=== PATIENT | male | born 1935 | race Caucasian/White ===

== ENCOUNTER 2023-06-23 12:00 | Inpatient (IN) | payer MEDICARE, BC ==
[~2023-06-23] VITALS: Ht 165.1 cm; Wt 74.8 kg
[2023-06-23 12:47] LABS: BASOPHILS # (AUTO) 0.1 K/UL (0.0-0.2); BASOPHILS % (AUTO) 1.3 % (0.0-2.0); EOSINOPHILS # (AUTO) 0.1 K/uL (0.0-0.7); EOSINOPHILS % (AUTO) 0.8 % (0.0-7.0); HEMATOCRIT 42.4 % (36.7-47.1); HEMOGLOBIN 14.1 g/dL (12.5-16.3); LYMPHOCYTES # (AUTO) 2.3 K/uL (0.8-4.8); LYMPHOCYTES % (AUTO) 29.7 % (20.5-51.5); MEAN CORPUSCULAR HEMOGLOBIN 29.2 uug (23.8-33.4); MEAN CORPUSCULAR HGB CONC 33 g/dL (32.5-36.3); MEAN CORPUSCULAR VOLUME 87.7 fL (73.0-96.2); MONOCYTES # (AUTO) 0.5 K/uL (0.1-1.30); MONOCYTES % (AUTO) 6.2 % (0.0-11.0); NEUTROPHILS # (AUTO) 4.8 K/uL (1.8-8.9); PLATELET COUNT (AUTO) 228 K/uL (152-348); RED BLOOD CELL COUNT(AUTO) 4.83 MIL/uL (4.06-5.63); RED CELL DISTRIBUTION WIDTH 13.9 % (12.1-16.2); WHITE BLOOD COUNT (AUTO) 7.8 K/uL (3.6-10.2)
[2023-06-23 12:53] LABS: DIFFERENTIAL COMMENT 1
[2023-06-23 12:56] LABS: CALCIUM 9.8 mg/dL (8.5-10.1); CARBON DIOXIDE 24 mmol/L (21-32); CHLORIDE 105 mmol/L (98-107); CREATININE 1.5 mg/dL (0.6-1.3); GLUCOSE 97 mg/dL (74-106); POTASSIUM 4.2 mmol/L (3.5-5.1); SODIUM SERUM 137 mmol/L (136-145); UREA NITROGEN, BLOOD 19 mg/dL (7-18)
[2023-06-23] MEDS ORDERED: ZETIA PO (12:56)
[2023-06-23] MEDS ORDERED: HYDRALAZINE PO (12:56)
[2023-06-23] MEDS ORDERED: PAXIL PO (12:56)
[2023-06-23] MEDS ORDERED: COLCHICINE PO (12:56)
[2023-06-23] MEDS ORDERED: RANOLAZINE PO (12:56)
[2023-06-23] MEDS ORDERED: FURO20TA90 PO (12:56)
[2023-06-23] MEDS ORDERED: SYNTHROID PO (12:56)
[2023-06-23] MEDS ORDERED: CRESTOR PO (12:56)
[2023-06-23] MEDS ORDERED: ASPIRIN PO (12:56)
[2023-06-23] MEDS ORDERED: PRILOSEC PO (12:56)
[2023-06-23] MEDS ORDERED: hydrALAZINE HCL 20 MG/1 ML VIAL ONE ×2 (13:25→16:17)
[2023-06-23] MEDS ORDERED: IV NORMAL SALINE 250 ML IV ONE (13:29)
[2023-06-23] MEDS ORDERED: SWABABLE VALVE TRANSFER SET EA MC ONE (13:29)
[2023-06-23] MEDS ORDERED: IOHEXOL 350 100 ML INFUS..BTL ONE (13:29)
[2023-06-23] MEDS ORDERED: hydrALAZINE HCL 20 MG/1 ML VIAL IV ONE ×2 (13:30→16:15)
[2023-06-23] MEDS ORDERED: POLYVINYL ALCOHOL OPHT DROPS 15 ML BOTTLE ONE (15:09)
[2023-06-23] MEDS ORDERED: POLYVINYL ALCOHOL OPHT DROPS 15 ML BOTTLE OP ONE (15:15)
[2023-06-23] MEDS ORDERED: ASPIRIN 81 MG TAB.CHEW PO ONE (15:30)
[2023-06-23 18:31] VITALS: BP 169/80; TEMP 97.9; O2SAT 97
[2023-06-23 20:00] VITALS: BP 159/87; TEMP 98.1; O2SAT 96
[2023-06-23] MEDS: ENOXAPARIN SODIUM 40 MG/0.4 ML DISP.SYRIN SQ SCH (20:38)
[2023-06-24] VITALS: BP 150/88; TEMP 98.5; O2SAT 96
[2023-06-24 04:00] VITALS: BP 157/70; TEMP 98.6; O2SAT 96
[2023-06-24 05:36] VITALS: BP 146/48; TEMP 97.7; O2SAT 97
[2023-06-24] MEDS: PANTOPRAZOLE SODIUM 40 MG TABLET.DR PO SCH (06:25)
[2023-06-24 07:14] LABS: BASOPHILS % (AUTO) 0.4 % (0.0-2.0); EOSINOPHILS % (AUTO) 0.6 % (0.0-7.0); HEMATOCRIT 42.4 % (36.7-47.1); HEMOGLOBIN 14.4 g/dL (12.5-16.3); LYMPHOCYTES # (AUTO) 2.1 K/uL (0.8-4.8); LYMPHOCYTES % (AUTO) 24.5 % (20.5-51.5); MEAN CORPUSCULAR HEMOGLOBIN 29.7 uug (23.8-33.4); MEAN CORPUSCULAR HGB CONC 34 g/dL (32.5-36.3); MEAN CORPUSCULAR VOLUME 87.6 fL (73.0-96.2); MONOCYTES # (AUTO) 0.6 K/uL (0.1-1.30); MONOCYTES % (AUTO) 7.7 % (0.0-11.0); NEUTROPHILS # (AUTO) 5.6 K/uL (1.8-8.9); NEUTROPHILS % (AUTO) 66.8 % (38.5-71.5); PLATELET COUNT (AUTO) 236 K/uL (152-348); RED BLOOD CELL COUNT(AUTO) 4.84 MIL/uL (4.06-5.63); RED CELL DISTRIBUTION WIDTH 14.1 % (12.1-16.2); WHITE BLOOD COUNT (AUTO) 8.4 K/uL (3.6-10.2)
[2023-06-24 07:22] LABS: DIFFERENTIAL COMMENT 1
[2023-06-24 07:35] LABS: CARBON DIOXIDE 26 mmol/L (21-32); CHLORIDE 106 mmol/L (98-107); CREATININE 1.5 mg/dL (0.6-1.3); GLUCOSE 105 mg/dL (74-106); POTASSIUM 4.1 mmol/L (3.5-5.1); SODIUM SERUM 140 mmol/L (136-145); UREA NITROGEN, BLOOD 17 mg/dL (7-18)
[2023-06-24 08:21] LABS: CALCIUM 10.5 mg/dL (8.5-10.1)
[2023-06-24] MEDS: ASPIRIN EC 81 MG TABLET.DR PO SCH (09:11)
[2023-06-24] MEDS: hydrALAZINE HCL 25 MG TABLET PO PRN ×2 (09:11→21:50)
[2023-06-24 10:40] LABS: THYROID STIMULATING HORMONE 7.17 mIU/mL (0.358-3.740)
[2023-06-24 11:34] VITALS: BP 131/77; TEMP 98.7; O2SAT 97
[2023-06-24] MEDS ORDERED: RANOLAZINE 500 MG TAB.ER.12H PO SCH (12:58)
[2023-06-24 15:40] VITALS: BP 125/68; TEMP 97.1; O2SAT 98
[2023-06-24 16:17] LABS: *BILIRUBIN,URIN NEGATIVE (NEGATIVE); *BLOOD, URINE NEGATIVE (NEGATIVE); *CLARITY,URINE CLEAR (CLEAR); *COLOR,URINE YELLOW (YELLOW); *KETONES,URINE NEGATIVE (NEGATIVE); *PROTEIN,URINE 1+ (NEGATIVE); *UROBILINOGEN,URINE 0.2 E.U./dl (NORMAL); LEUKOCYTE ESTERASE ,URINE NEGATIVE (NEGATIVE); NITRITE, URINE NEGATIVE (NEGATIVE); PH,URINE 6.5 (5.0-8.0); UGLUCOSE NEGATIVE (NEGATIVE)
[2023-06-24 16:53] LABS: *CREATININE,URINE 137.8 mg/dL (30-125); *URINE TOTAL PROTEIN RANDOM 27.6 mg/dL (<150/24HR)
[2023-06-24 20:00] VITALS: BP 169/80; TEMP 98; O2SAT 98
[2023-06-24] MEDS: ENOXAPARIN SODIUM 40 MG/0.4 ML DISP.SYRIN SQ SCH (20:56)
[2023-06-25] VITALS: BP 159/78; TEMP 98.2; O2SAT 98
[2023-06-25 04:00] VITALS: BP 175/85; TEMP 98; O2SAT 94
[2023-06-25] MEDS: hydrALAZINE HCL 25 MG TABLET PO PRN ×2 (05:14→09:33)
[2023-06-25] MEDS: PANTOPRAZOLE SODIUM 40 MG TABLET.DR PO SCH (06:38)
[2023-06-25] MEDS: LEVOTHYROXINE SODIUM 125 MCG TABLET PO SCH (06:38)
[2023-06-25 07:12] LABS: BASOPHILS % (AUTO) 0.3 % (0.0-2.0); EOSINOPHILS # (AUTO) 0.1 K/uL (0.0-0.7); EOSINOPHILS % (AUTO) 1.5 % (0.0-7.0); HEMATOCRIT 39.3 % (36.7-47.1); HEMOGLOBIN 13.3 g/dL (12.5-16.3); LYMPHOCYTES # (AUTO) 1.5 K/uL (0.8-4.8); LYMPHOCYTES % (AUTO) 23.2 % (20.5-51.5); MEAN CORPUSCULAR HEMOGLOBIN 29.7 uug (23.8-33.4); MEAN CORPUSCULAR HGB CONC 34 g/dL (32.5-36.3); MEAN CORPUSCULAR VOLUME 87.6 fL (73.0-96.2); MONOCYTES # (AUTO) 0.6 K/uL (0.1-1.30); MONOCYTES % (AUTO) 8.7 % (0.0-11.0); NEUTROPHILS # (AUTO) 4.3 K/uL (1.8-8.9); NEUTROPHILS % (AUTO) 66.3 % (38.5-71.5); PLATELET COUNT (AUTO) 214 K/uL (152-348); RED BLOOD CELL COUNT(AUTO) 4.49 MIL/uL (4.06-5.63); RED CELL DISTRIBUTION WIDTH 14.2 % (12.1-16.2); WHITE BLOOD COUNT (AUTO) 6.6 K/uL (3.6-10.2)
[2023-06-25 07:27] LABS: DIFFERENTIAL COMMENT 1
[2023-06-25 07:40] LABS: ALANINE AMINOTRANSFERASE 15 U/L (16-63); ALBUMIN 3.4 g/dL (3.4-5.0); ALKALINE PHOSPHATASE 82 U/L (50-136); CALCIUM 10.1 mg/dL (8.5-10.1); CARBON DIOXIDE 21 mmol/L (21-32); CHLORIDE 103 mmol/L (98-107); CREATINE KINASE, TOTAL 103 U/L (39-308); CREATININE 1.6 mg/dL (0.6-1.3); GLUCOSE 130 mg/dL (74-106); MAGNESIUM 2.3 mg/dL (1.8-2.4); PHOSPHOROUS 2.8 mg/dL (2.5-4.9); POTASSIUM 3.7 mmol/L (3.5-5.1); SODIUM SERUM 136 mmol/L (136-145); TOTAL PROTEIN, SERUM 6.1 g/dL (6.4-8.2); UREA NITROGEN, BLOOD 16 mg/dL (7-18)
[2023-06-25 07:41] LABS: THYROID STIMULATING HORMONE 10.734 mIU/mL (0.358-3.740)
[2023-06-25 08:00] VITALS: BP 173/79; TEMP 98.6; O2SAT 93
[2023-06-25 08:01] LABS: ASPARTATE AMINOTRANSFERASE 26 U/L (15-37)
[2023-06-25] MEDS ORDERED: RANOLAZINE 1000 MG PO SCH (09:00)
[2023-06-25] MEDS ORDERED: ZETIA 10 MG PO SCH (09:00)
[2023-06-25] MEDS ORDERED: SYNTHROID 125 MCG PO SCH (09:00)
[2023-06-25] MEDS ORDERED: AMLODIPINE 5 MG TABLET PO SCH (09:15)
[2023-06-25] MEDS: EZETIMIBE 10 MG TABLET PO SCH (09:33)
[2023-06-25] MEDS: ASPIRIN EC 81 MG TABLET.DR PO SCH (09:33)
[2023-06-25 11:10] VITALS: BP 163/87; TEMP 97.4; O2SAT 98
[2023-06-25] MEDS: CLOPIDOGREL 75 MG TABLET PO SCH (12:50)
[2023-06-25] MEDS ORDERED: AMLODIPINE 5 MG TABLET PO ONE (14:00)
[2023-06-25 15:29] VITALS: BP 146/72; TEMP 98.3; O2SAT 97
[2023-06-25] MEDS: RANOLAZINE 500 MG TAB.ER.12H PO SCH (17:51)
[2023-06-25] MEDS: ENOXAPARIN SODIUM 40 MG/0.4 ML DISP.SYRIN SQ SCH (20:51)
[2023-06-25 21:29] VITALS: BP 162/79; TEMP 97.8; O2SAT 99
[2023-06-26 04:57] VITALS: BP 181/83; TEMP 97.8; O2SAT 99
[2023-06-26] MEDS: hydrALAZINE HCL 25 MG TABLET PO PRN (05:12)
[2023-06-26] MEDS: PANTOPRAZOLE SODIUM 40 MG TABLET.DR PO SCH (06:07)
[2023-06-26] MEDS: LEVOTHYROXINE SODIUM 125 MCG TABLET PO SCH (06:07)
[2023-06-26 06:40] VITALS: BP 155/79; TEMP 97.8
[2023-06-26 07:05] LABS: BASOPHILS % (AUTO) 0.3 % (0.0-2.0); EOSINOPHILS # (AUTO) 0.1 K/uL (0.0-0.7); HEMATOCRIT 40.1 % (36.7-47.1); HEMOGLOBIN 13.7 g/dL (12.5-16.3); LYMPHOCYTES # (AUTO) 1.9 K/uL (0.8-4.8); LYMPHOCYTES % (AUTO) 20.3 % (20.5-51.5); MEAN CORPUSCULAR HEMOGLOBIN 29.8 uug (23.8-33.4); MEAN CORPUSCULAR HGB CONC 34 g/dL (32.5-36.3); MEAN CORPUSCULAR VOLUME 87.4 fL (73.0-96.2); MONOCYTES # (AUTO) 0.9 K/uL (0.1-1.30); MONOCYTES % (AUTO) 9.2 % (0.0-11.0); NEUTROPHILS # (AUTO) 6.6 K/uL (1.8-8.9); NEUTROPHILS % (AUTO) 69.2 % (38.5-71.5); PLATELET COUNT (AUTO) 224 K/uL (152-348); RED BLOOD CELL COUNT(AUTO) 4.59 MIL/uL (4.06-5.63); WHITE BLOOD COUNT (AUTO) 9.5 K/uL (3.6-10.2)
[2023-06-26 07:06] LABS: PTH, INTACT 94 pg/mL (15-65)
[2023-06-26 07:19] LABS: DIFFERENTIAL COMMENT 1
[2023-06-26 07:27] LABS: CALCIUM 10.4 mg/dL (8.5-10.1); CARBON DIOXIDE 22 mmol/L (21-32); CHLORIDE 103 mmol/L (98-107); CREATININE 1.4 mg/dL (0.6-1.3); GLUCOSE 102 mg/dL (74-106); MAGNESIUM 2.3 mg/dL (1.8-2.4); PHOSPHOROUS 3.3 mg/dL (2.5-4.9); POTASSIUM 3.8 mmol/L (3.5-5.1); SODIUM SERUM 136 mmol/L (136-145); UREA NITROGEN, BLOOD 19 mg/dL (7-18)
[2023-06-26 08:06] LABS: CORTISOL 9.9 ug/dL (6.2-19.4)
[2023-06-26 08:29] VITALS: BP 162/75; TEMP 98; O2SAT 95
[2023-06-26] MEDS: ASPIRIN EC 81 MG TABLET.DR PO SCH (08:39)
[2023-06-26] MEDS: RANOLAZINE 500 MG TAB.ER.12H PO SCH (08:39)
[2023-06-26] MEDS: CLOPIDOGREL 75 MG TABLET PO SCH (08:39)
[2023-06-26] MEDS: EZETIMIBE 10 MG TABLET PO SCH (08:40)
[2023-06-26] MEDS ORDERED: AMLODIPINE 5 MG TABLET PO SCH (09:00)
[2023-06-26] MEDS ORDERED: AMLODIPINE 10 MG TABLET PO SCH (09:00)
[2023-06-26 09:07] LABS: A/G RATIO 1.2 (0.7-1.7); ALBUMIN 3.2 g/dL (2.9-4.4); ALPHA-1-GLOBULIN 0.2 g/dL (0.0-0.4); ALPHA-2-GLOBULIN 0.8 g/dL (0.4-1.0); BETA GLOBULIN 0.9 g/dL (0.7-1.3); GAMMA GLOBULIN 0.8 g/dL (0.4-1.8); GLOBULIN, TOTAL 2.7 g/dL (2.2-3.9); M-SPIKE Not Observed g/dL (Not Observed)
[2023-06-26] MEDS ORDERED: hydrALAZINE HCL 25 MG TABLET PO SCH (09:45)
[2023-06-26 11:00] VITALS: BP 115/76; TEMP 97.5; O2SAT 99
[2023-06-26] MEDS ORDERED: PANT40TA49 PO (11:19)
[2023-06-26] MEDS ORDERED: AMLO10TA59 PO (11:19)
[2023-06-26] MEDS ORDERED: CLOP75TA33 PO (11:19)
[2023-06-26] MEDS ORDERED: HYDR-894 PO (11:19)
== END 2023-06-26 13:00 | disposition home or self-care (01) | DRG 304 ==
LOC: ER 12:00 → TELE3 17:18
PROVIDERS: ADMIT Student in an Organized Health Care Education/Training Program; ATTEND Student in an Organized Health Care Education/Training Program
DX: I16.0 Hypertensive urgency (principal); N17.0 Acute kidney failure with tubular necrosis; G45.9 Transient cerebral ischemic attack, unspecified; R53.1 Weakness; I12.9 Hypertensive chronic kidney disease with stage 1 through stage 4 chronic kidney disease, or unspecified chronic kidney disease; N18.9 Chronic kidney disease, unspecified; I25.10 Atherosclerotic heart disease of native coronary artery without angina pectoris; Z95.1 Presence of aortocoronary bypass graft; M54.41 Lumbago with sciatica, right side; E03.9 Hypothyroidism, unspecified; F32.A Depression, unspecified; G89.29 Other chronic pain; K21.9 Gastro-esophageal reflux disease without esophagitis; E78.5 Hyperlipidemia, unspecified; I77.89 Other specified disorders of arteries and arterioles
CPT/HCPCS: 36415; 70496; 71045; 72131; 76770; 82533; 82747; 83735; 83921; 83970; 84100; 84155; 84165; 84300; 84443; 84484; 85014; 85025; 85730; 86850; 86900; 86901; 93005; 93307; A4606; A4663; G0378; J0360; J1650; J7040; Q9967